=== PATIENT | female | born 1995 | race Caucasian/White ===

== ENCOUNTER 2019-01-17 18:25 | Emergency (ER) | payer MEDICAID ==
[~2019-01-17] VITALS: Ht 160 cm; Wt 75.0 kg
[~2019-01-17 18:25] MED LIST: CEPH-571 PO; IBUP-1986 PO; METH-360 PO; NITR-60 PO; NITR100C6 PO; NO HOME MEDS; PERM60CR19 TP; PHEN-824 PO
[2019-01-17 18:43] VITALS: BP 136/83
--- NOTE | 2019-01-17 18:51 | NUR ---
PPD SITE INFLAMMATION MEASURED AT 1CM X 1CM
== END 2019-01-17 20:10 | disposition home or self-care (01) ==
LOC: ER 18:25
DX: R21 Rash and other nonspecific skin eruption (principal); Z11.1 Encounter for screening for respiratory tuberculosis; Z88.0 Allergy status to penicillin; Z79.899 Other long term (current) drug therapy
CPT/HCPCS: 71045; 99283

== ENCOUNTER 2024-07-10 17:07 | Emergency (ER) | payer MEDICAID ==
[~2024-07-10] VITALS: Ht 157.5 cm; Wt 122.7 kg
[~2024-07-10 17:07] MED LIST changes: -PERM60CR19 TP; +PERM60CR27 TP
[2024-07-10] MEDS: ketorolac trometh 15mg/ml vial 15 MG/ML ML IM ONE (18:37)
[2024-07-10 18:46] VITALS: BP 114/90; PULSE 99; RESP 18; TEMP 98.6; O2SAT 99
== END 2024-07-10 18:47 | disposition home or self-care (01) ==
LOC: ER 17:07
DX: M25.571 Pain in right ankle and joints of right foot (principal); M79.671 Pain in right foot; Z88.0 Allergy status to penicillin; X50.1XXA Overexertion from prolonged static or awkward postures, initial encounter; Y93.89 Activity, other specified; Y92.89 Other specified places as the place of occurrence of the external cause; Y99.8 Other external cause status
CPT/HCPCS: 73610; 96372; 99283; J1885; L1930